=== PATIENT | female | born 1995 | race Caucasian/White ===

== ENCOUNTER 2020-04-14 16:05 | Emergency (ER) | payer OTHER ==
[2020-04-14] MEDS ORDERED: SILVADENE1 % EX (17:42)
[2020-04-14 18:00] VITALS: BP 166/92
== END 2020-04-14 18:09 | disposition home or self-care (01) | DRG 103 ==
LOC: ED 16:05
DX: R51.9 Headache, unspecified (principal); S00.83XA Contusion of other part of head, initial encounter; T24.212A Burn of second degree of left thigh, initial encounter; V09.9XXA Pedestrian injured in unspecified transport accident, initial encounter

== ENCOUNTER 2022-05-25 10:03 | Emergency (ER) | payer MEDICAID ==
[~2022-05-25] VITALS: Ht 162.6 cm; Wt 109.1 kg
[~2022-05-25 10:03] MED LIST: SILVADENE1 % EX
[2022-05-25 10:20] VITALS: BP 113/61
[2022-05-25 10:30] VITALS: BP 102/70
[2022-05-25 10:45] VITALS: BP 105/56
[2022-05-25 10:58] LABS: BASO% 0.2 % (0-3); EOS% 0.9 % (0-8); HEMATOCRIT 33.6 % (37.0-47.0); HEMOGLOBIN 11.7 g/dl (12.0-16.0); IMMATURE GRANULOCYTES 0.8 % (0.0-5.0); LYMPH% 7.8 % (15-41); MEAN CELL VOLUME 95.2 fL CALC (80.0-100.0); MEAN CORPUSCULAR HGB 33.1 pG CALC (26.0-32.0); MEAN CORPUSCULAR HGB CONC 34.8 g/dL CAL (32.0-36.0); MONO% 11.2 % (2-13); NEUT# 6.94 thou/uL (2.00-7.15); NEUT% 79.1 % (42-76); RED BLOOD COUNT 3.53 mill/uL (4.20-5.60); RED CELL DISTRI WIDTH 12.3 % (11.5-15.5)
[2022-05-25 11:01] VITALS: BP 98/44
[2022-05-25 11:09] LABS: ALBUMIN 3.8 g/dL (3.2-5.0); ALKALINE PHOSPHATASE 68 u/l (38-126); ANION GAP 11 (6-22 (CALC)); BILIRUBIN, TOTAL 0.3 mg/dL (0.0-1.4); BUN 6 mg/dL (7-17); BUN/CREATININE RATIO 12 (12-20 (CALC)); CARBON DIOXIDE 21 mmol/l (22-30); CHLORIDE 107 mmol/l (95-108); CREATININE 0.5 mg/dL (0.5-1.0); GFR FOR AFR.AMER. > 60 ML/MIN (>=60 (CALC)); GFR OTHER RACES > 60 ML/MIN (>=60 (CALC)); LIPASE 64 u/l (23-300); POTASSIUM 3.8 mmol/l (3.5-5.1); SGOT/AST 48 u/l (14-36); SODIUM 136 mmol/l (137-146); TOTAL PROTEIN 7.2 g/dL (6.3-8.2)
[2022-05-25 11:15] VITALS: BP 124/76
[2022-05-25] MEDS ORDERED: ZOFRAN4 MG/TAB PO (12:11)
[2022-05-25 12:25] VITALS: BP 124/76
== END 2022-05-25 12:25 | disposition home or self-care (01) ==
LOC: ED 10:03
PROVIDERS: Family Medicine
DX: O26.892 Other specified pregnancy related conditions, second trimester (principal); R51.9 Headache, unspecified; R11.2 Nausea with vomiting, unspecified; Z3A.22 22 weeks gestation of pregnancy; Z20.822 Contact with and (suspected) exposure to COVID-19